=== PATIENT | female | born 1955 | race Caucasian/White ===

== ENCOUNTER 2017-02-11 05:30 | Inpatient (IN) | payer BC ==
[~2017-02-11] VITALS: Ht 175.3 cm; Wt 95.3 kg
[2017-02-11] MEDS ORDERED: PRO40 PO (06:34)
[2017-02-11] MEDS ORDERED: PROPOFOL 200MG/ 20ML VIAL (DIPRIVAN) IV ONE (07:03)
[2017-02-11] MEDS ORDERED: SUCCINYLCHOLINE CHLORIDE 20 MG/ML(QUELICIN) IVP ONE (07:03)
[2017-02-11] MEDS ORDERED: fentaNYL CITRATE/PF 100 MCG/2 ML AMP IVP ONE (07:03)
[2017-02-11] MEDS ORDERED: LR 1,000 ML IV.SOLN IV ONE (07:03)
[2017-02-11] MEDS ORDERED: LIDOCAINE/EPI 1% 1:100000 20 ML VIAL INJ ONE (07:03)
[2017-02-11] MEDS ORDERED: MIDAZOLAM HCL 5 MG/5 ML VIAL IVP ONE (07:03)
[2017-02-11] MEDS ORDERED: NS IRRIG SOLN 1000 ML IR ONE (07:03)
[2017-02-11] MEDS ORDERED: SEVOFLURANE 15 MIN GAS INH ONE (07:03)
[2017-02-11] MEDS ORDERED: DEXAMETHASONE SOD PHOSPHATE 4 MG/ML VIAL IVP ONE (07:03)
[2017-02-11] MEDS ORDERED: CEFAZOLIN 2 GM IVPB PREMIX 50 ML IV ONE (07:03)
[2017-02-11] MEDS ORDERED: LR 1,000 ML IV SCH (07:52)
[2017-02-11] MEDS ORDERED: ONDANSETRON HCL 4 MG/2 ML VIAL IVP PRN (08:00)
[2017-02-11] MEDS ORDERED: HYDROmorphone 1 MG INJ. 1 MG/ML AMPUL IVP PRN (08:00)
[2017-02-11] MEDS ORDERED: HYDROmorphone 2 MG/ML VIAL IVP PRN ×2 (08:00)
[2017-02-11] MEDS ORDERED: MEPERIDINE HCL/PF 25 MG/ML DISP.SYRIN IVP PRN ×2 (08:00)
[2017-02-11] MEDS ORDERED: HYDROmorphone 1 MG INJ. 1 MG/ML AMPUL ONE (11:02)
[2017-02-11 11:32] VITALS: BP_SYST 143
[2017-02-11 12:30] VITALS: BP_SYST 124
[2017-02-11] MEDS ORDERED: NORMAL SALINE 5 ML DISP.SYRIN IVF SCH (14:00)
[2017-02-11 14:46] VITALS: BP_SYST 143
[2017-02-11] MEDS: NORMAL SALINE 5 ML DISP.SYRIN IVF SCH ×2 (14:57→22:00)
[2017-02-11] MEDS: HYDROcodone/ACETAMIN 5-325 MG TAB (NORCO/ VICODIN) PO PRN ×3 (14:57→23:11)
[2017-02-11] MEDS: DEXAMETHASONE SOD PHOSPHATE 4 MG/ML VIAL IVP SCH ×2 (14:57→23:05)
[2017-02-11 16:49] VITALS: BP_SYST 136
[2017-02-11] MEDS: ONDANSETRON HCL 4 MG/2 ML VIAL IVP PRN (16:56)
[2017-02-11 20:00] VITALS: BP_SYST 114
[2017-02-12 01:07] VITALS: BP_SYST 115
[2017-02-12 03:15] VITALS: BP_SYST 109
[2017-02-12] MEDS: NORMAL SALINE 5 ML DISP.SYRIN IVF SCH (06:35)
[2017-02-12] MEDS ORDERED: HYDR-1189 PO ×2 (08:33→08:34)
[2017-02-12] MEDS ORDERED: SULF1TAB48 PO (08:34)
[2017-02-12] MEDS: HYDROcodone/ACETAMIN 5-325 MG TAB (NORCO/ VICODIN) PO PRN (08:38)
[2017-02-12] MEDS: ONDANSETRON HCL 4 MG/2 ML VIAL IVP PRN (08:41)
[2017-02-12 10:03] VITALS: BP_SYST 113
== END 2017-02-12 10:45 | disposition home or self-care (01) | DRG 627 ==
LOC: SMU 05:30
PROVIDERS: ADMIT Otolaryngology Plastic Surgery within the Head & Neck; ATTEND Otolaryngology Plastic Surgery within the Head & Neck
PROC: 4A11X4G Monitoring of Peripheral Nervous Electrical Activity, Intraoperative, External Approach (ICD-10-PCS; 2017-02-11)
PROC: 0GTJ0ZZ Resection of Thyroid Gland Isthmus, Open Approach (ICD-10-PCS; principal; 2017-02-11 07:30)
DX: E04.1 Nontoxic single thyroid nodule (principal)
CPT/HCPCS: 87081; 88307; 88313; 94010; C1782; J0330; J0690; J1100; J1170; J2250; J2405; J2704; J3010; J7120

== ENCOUNTER 2017-02-18 08:36 | Inpatient (IN) | payer BC ==
[~2017-02-18] VITALS: Ht 175.3 cm; Wt 95.3 kg
[~2017-02-18 08:36] MED LIST: HYDR-1189 PO; PRO40 PO; SULF1TAB48 PO
[2017-02-18] MEDS ORDERED: LR 1,000 ML IV SCH (12:02)
[2017-02-18] MEDS ORDERED: ONDANSETRON HCL 4 MG/2 ML VIAL IVP PRN ×2 (12:15→13:00)
[2017-02-18] MEDS ORDERED: HYDROmorphone 2 MG/ML VIAL IVP PRN (12:15)
[2017-02-18] MEDS ORDERED: HYDROmorphone 1 MG INJ. 1 MG/ML AMPUL IVP PRN ×2 (12:15)
[2017-02-18 14:00] VITALS: BP_SYST 140
[2017-02-18] MEDS ORDERED: NORMAL SALINE 5 ML DISP.SYRIN IVF SCH (14:00)
[2017-02-18] MEDS: HYDROcodone/ACETAMIN 5-325 MG TAB (NORCO/ VICODIN) PO PRN ×2 (14:33→21:02)
[2017-02-18] MEDS: NORMAL SALINE 5 ML DISP.SYRIN IVF SCH ×2 (14:34→22:00)
[2017-02-18] MEDS: DEXAMETHASONE SOD PHOSPHATE 4 MG/ML VIAL IVP SCH (15:15)
[2017-02-18 16:00] VITALS: BP_SYST 131
[2017-02-18 20:00] VITALS: BP_SYST 124
[2017-02-18 22:24] VITALS: BP_SYST 124
[2017-02-19] MEDS: DEXAMETHASONE SOD PHOSPHATE 4 MG/ML VIAL IVP SCH (00:51)
[2017-02-19] MEDS: HYDROcodone/ACETAMIN 5-325 MG TAB (NORCO/ VICODIN) PO PRN ×2 (01:07→06:32)
[2017-02-19 04:21] VITALS: BP_SYST 111
[2017-02-19] MEDS: NORMAL SALINE 5 ML DISP.SYRIN IVF SCH (06:34)
[2017-02-19 08:00] VITALS: BP_SYST 114
[2017-02-19] MEDS ORDERED: METOCLOPRAMIDE HCL 10 MG/2 ML VIAL IVP ONE (11:10)
[2017-02-19] MEDS ORDERED: BACITRACIN ZINC 15 GM TOPICAL OINTMENT TP ONE (11:10)
[2017-02-19] MEDS ORDERED: PROPOFOL 200MG/ 20ML VIAL (DIPRIVAN) IV ONE (11:10)
[2017-02-19] MEDS ORDERED: fentaNYL CITRATE 250 MCG/5 ML AMP IV ONE (11:10)
[2017-02-19] MEDS ORDERED: SEVOFLURANE 15 MIN GAS INH ONE (11:10)
[2017-02-19] MEDS ORDERED: THROMBIN (BOVINE) 5000 UNITS/ VIAL TP ONE (11:10)
[2017-02-19] MEDS ORDERED: NS IRRIG SOLN 1000 ML IR ONE (11:10)
[2017-02-19] MEDS ORDERED: LIDOCAINE/EPI 1% 1:100000 20 ML VIAL INJ ONE (11:10)
[2017-02-19] MEDS ORDERED: ONDANSETRON HCL 4 MG/2 ML VIAL IVP ONE (11:10)
[2017-02-19] MEDS ORDERED: SUCCINYLCHOLINE CHLORIDE 20 MG/ML(QUELICIN) IVP ONE (11:10)
[2017-02-19] MEDS ORDERED: CEFAZOLIN 1 GM IVPB PREMIX 50 ML IV ONE (11:10)
[2017-02-19] MEDS ORDERED: MIDAZOLAM HCL 5 MG/5 ML VIAL IVP ONE (11:10)
[2017-02-19] MEDS ORDERED: LR 1,000 ML IV.SOLN IV ONE (11:10)
[2017-02-19 11:34] VITALS: BP_SYST 126
[2017-02-19 13:18] VITALS: BP_SYST 117
== END 2017-02-19 14:05 | disposition home or self-care (01) | DRG 627 ==
LOC: SMU 08:36
PROVIDERS: ADMIT Otolaryngology Plastic Surgery within the Head & Neck; ATTEND Otolaryngology Plastic Surgery within the Head & Neck
PROC: 0GTG4ZZ Resection of Left Thyroid Gland Lobe, Percutaneous Endoscopic Approach (ICD-10-PCS; principal; 2017-02-18 10:15)
DX: C73 Malignant neoplasm of thyroid gland (principal); K21.9 Gastro-esophageal reflux disease without esophagitis
CPT/HCPCS: 36415; 82310-TC; 87081; 88307; 94010; C1782; J0330; J0690; J1100; J2250; J2405; J2704; J2765; J3010; J7120

== ENCOUNTER 2020-03-07 17:57 | Inpatient (IN) | payer BC ==
[~2020-03-07] VITALS: Ht 170.2 cm; Wt 97.5 kg
[2020-03-07 17:57] VITALS: BP_SYST 139
--- NOTE | 2020-03-07 17:57 | NUR ---
BROUGHT BACK TO BED #1 AND TRIAGED. REPORT GIVEN TO MACY
--- NOTE | 2020-03-07 18:04 | NUR ---
64 y/o female [facility] ambulance to ER from her local clinic w/ c/o increased hr w/ abnormal rhythm. Patient was referred to clinic by her PMD (h/o Thyroid Cancer, currently on Synthroid) when her pmd noticed patient had an abnormal rhythm. Patient denies any cp or palpitation but c/o sob. Introduced self to patient, positioned for comfort and safety w/ bed to low position, sr up, continue to monitor.
--- NOTE | 2020-03-07 18:15 | NUR ---
JOEL Peña at bedside examining patient.
[2020-03-07] MEDS ORDERED: NACL 0.9% 1,000 ML IV ONE (18:30)
[2020-03-07 18:39] LABS: BASOPHILS # (AUTO) 0.1 K/uL (0.0-0.2); EOSINOPHILS # (AUTO) 0.1 K/uL (0.0-0.4); EOSINOPHILS % (AUTO) 1.2 % (0.0-4.0); HEMATOCRIT 43.2 % (36-48); HEMOGLOBIN 14.6 g/dL (12.0-16.0); LYMPHOCYTES # (AUTO) 2.3 K/uL (1.0-5.5); LYMPHOCYTES % (AUTO) 28.6 % (20.5-51.5); MEAN CORPUSCULAR HEMOGLOBIN 30 pg (27-31); MEAN CORPUSCULAR HGB CONC 34 % (32-36); MEAN CORPUSCULAR VOLUME 89 fL (79.0-98.0); MONOCYTES # (AUTO) 0.6 K/uL (0.0-1.0); NEUTROPHILS % (AUTO) 62.2 % (40.0-70.0); PLATELET COUNT (AUTO) 326 K/uL (130-430); RED BLOOD CELL COUNT(AUTO) 4.86 MIL/uL (4.2-6.2); RED CELL DISTRIBUTION WIDTH 13.1 % (9.0-15.0); WHITE BLOOD COUNT (AUTO) 8.1 K/uL (4.8-10.8)
[2020-03-07 18:57] LABS: ANION GAP 9 (5-15); CALCIUM 8.8 mg/dL (8.4-11.0); CHLORIDE 106 mmol/L (98-107); CREATININE 0.84 mg/dL (0.55-1.30); GLUCOSE 97 mg/dL (70-99); POTASSIUM 3.7 mmol/L (3.5-5.1); SODIUM SERUM 139 mmol/L (136-145); UREA NITROGEN, BLOOD 12 mg/dL (8-21)
[2020-03-07 19:03] LABS: GFR AFRICAN AMERICAN 88 mL/min (>90)
--- NOTE | 2020-03-07 19:07 | NUR ---
received report from SHANEKA Taylor for continuation of care.
[2020-03-07 19:12] LABS: ALANINE AMINOTRANSFERASE 21 U/L (12-78); ALBUMIN 3.8 g/dL (3.4-4.8); ASPARTATE AMINOTRANSFERASE 17 U/L (10-37); FREE T4 (FREE THYROXINE) 1.8 ng/dl (0.8-1.5); PHOSPHORUS 2.8 mg/dL (2.7-4.5); THYROID STIMULATING HORMONE 0.04 uIu/mL (0.36-3.74); TOTAL BILIRUBIN 0.5 mg/dL (0.0-1.0)
[2020-03-07] MEDS ORDERED: DILTIAZEM HCL 25 MG/5 ML VIAL IVP ONE (19:15)
--- NOTE | 2020-03-07 19:22 | NUR ---
Dr. Kennedy at bedside speaking with patient.
--- NOTE | 2020-03-07 19:25 | NUR ---
IV 20g in right hand flushed with normal saline without signs of infiltration.
--- NOTE | 2020-03-07 19:27 | NUR ---
IV fluids reconnected to patient, infusing at prescribed rate of 999mls/hr.
--- NOTE | 2020-03-07 19:37 | NUR ---
patients HR continues to jump to 130s after IV push of 15mg of Cardizem. MD aware. MD to input orders.
[2020-03-07] MEDS ORDERED: DILTIAZEM HCL 125 MG/25 ML VIAL IV ONE (19:55)
--- NOTE | 2020-03-07 20:10 | NUR ---
cardizem IV drip initiated at 10mg/hr per protocol. per MD order, maintain patients HR under 100-110. will titrate by 5mg/hr every 15 minutes per protocol. will continue to monitor. pt placed on security monitor for continuous monitoring.
[2020-03-07] MEDS ORDERED: LEVO100T PO (20:12)
--- NOTE | 2020-03-07 20:12 | NUR ---
Patient's code status is full code paperwork completed and placed in chart.
--- NOTE | 2020-03-07 20:12 | NUR ---
Medication reconciliation completed with information provided by patient. Any prior medication reconciliation on file was reviewed and corrected.
--- NOTE | 2020-03-07 20:20 | NUR ---
COVID SWAB COLLECTED AND SENT TO LAB.
--- NOTE | 2020-03-07 20:25 | NUR ---
patient ambulated to restroom with steady gait.
--- NOTE | 2020-03-07 20:27 | NUR ---
cardizem IV drip titrated to 15mg/hr per protocol. per MD order, maintain patients HR under 100-110. will titrate by 5mg/hr every 15 minutes per protocol. will continue to monitor. pt placed on lacing operator for continuous monitoring.
--- NOTE | 2020-03-07 20:32 | NUR ---
Patient will be admitted to care of DR. YA. Admitted to ICU unit. Will go to room ICU 6. Belongings list completed. Complete and up to date summary report printed. SBAR report to be given at bedside with opportunity for questions.
--- NOTE | 2020-03-07 20:53 | NUR ---
Transfer to ICU-6 via ACLS protocol. Licensed nurse present. IV present no signs or symptoms of infiltration.
[2020-03-07 21:00] VITALS: BP_SYST 145
[2020-03-07 21:05] VITALS: BP_SYST 141
--- NOTE | 2020-03-07 21:10 | NUR ---
ICU ADMIT Pt is alert and oriented. SPO2% above 95%. RR even and unlabored. Afib on the monitor. Skin warm and dry. IVF infusing. Belongings at bedside. Safety precautions in place, call light within reach. Will continue to monitor.
[2020-03-07 22:00] VITALS: BP_SYST 111
--- NOTE | 2020-03-07 22:40 | NUR ---
Spoke to Dr. Bird for new consult. made aware of patients current status. Orders given, will carry out.
--- NOTE | 2020-03-07 22:43 | NUR ---
HIGH ALERT NOTE: Called Dr. Bird back at [phone] identified within the medical roster to verify physician authenticity.
[2020-03-07] MEDS ORDERED: AMIODARONE HCL 200 MG TABLET PO ONE (22:45)
[2020-03-07 23:00] VITALS: BP_SYST 122
[2020-03-08] VITALS (20 sets, daily range): BP systolic 90–122
[2020-03-08] MEDS ORDERED: ACETAMINOPHEN 325 MG TABLET PO PRN (00:45)
[2020-03-08] MEDS ORDERED: HYDROcodone/ACETAMIN 5-325 MG TAB (NORCO/ VICODIN) PO PRN (00:45)
[2020-03-08] MEDS ORDERED: LORazepam 2 MG/ML VIAL IVP PRN (00:45)
[2020-03-08] MEDS ORDERED: NALOXONE HCL 0.4 MG/ML AMP (NARCAN) IVP PRN ×2 (00:45)
[2020-03-08] MEDS ORDERED: HYDROcodone/ACETAMIN 10-325 MG TAB PO PRN (00:45)
[2020-03-08] MEDS ORDERED: ONDANSETRON HCL 4 MG/2 ML VIAL IVP PRN (00:45)
[2020-03-08] MEDS ORDERED: DILTIAZEM HCL 125 MG/25 ML VIAL IV ONE (01:28)
[2020-03-08] MEDS ORDERED: AMIODARONE HCL 200 MG TABLET PO SCH (06:00)
[2020-03-08 06:04] LABS: BASOPHILS # (AUTO) 0.1 K/uL (0.0-0.2); EOSINOPHILS # (AUTO) 0.1 K/uL (0.0-0.4); EOSINOPHILS % (AUTO) 1.9 % (0.0-4.0); HEMATOCRIT 39.5 % (36-48); HEMOGLOBIN 13.3 g/dL (12.0-16.0); LYMPHOCYTES % (AUTO) 27.9 % (20.5-51.5); MEAN CORPUSCULAR HEMOGLOBIN 30 pg (27-31); MEAN CORPUSCULAR HGB CONC 34 % (32-36); MEAN CORPUSCULAR VOLUME 89 fL (79.0-98.0); MONOCYTES # (AUTO) 0.6 K/uL (0.0-1.0); MONOCYTES % (AUTO) 8.3 % (1.7-9.3); NEUTROPHILS # (AUTO) 4.4 K/uL (1.8-7.7); NEUTROPHILS % (AUTO) 60.9 % (40.0-70.0); PLATELET COUNT (AUTO) 296 K/uL (130-430); RED BLOOD CELL COUNT(AUTO) 4.45 MIL/uL (4.2-6.2); RED CELL DISTRIBUTION WIDTH 12.9 % (9.0-15.0); WHITE BLOOD COUNT (AUTO) 7.3 K/uL (4.8-10.8)
[2020-03-08] MEDS: NORMAL SALINE 5 ML DISP.SYRIN IVF SCH ×3 (06:05→21:29)
[2020-03-08 06:25] LABS: ALBUMIN 3.2 g/dL (3.4-4.8); CALCIUM 7.9 mg/dL (8.4-11.0); CREATININE 0.83 mg/dL (0.55-1.30); PHOSPHORUS 3.1 mg/dL (2.7-4.5); POTASSIUM 3.9 mmol/L (3.5-5.1); THYROID STIMULATING HORMONE 0.05 uIu/mL (0.36-3.74); TOTAL BILIRUBIN 0.6 mg/dL (0.0-1.0)
[2020-03-08] MEDS ORDERED: LEVOTHYROXINE SODIUM 0.1 MG TABLET PO SCH (07:00)
--- NOTE | 2020-03-08 08:00 | NUR ---
AM ASSESSMENT. PT JUST COMING BACK TO HER BED, CARDIZEM DRIP AT 5 MG PER HR INFUSING, BENEFITS PROCESSOR ATRIAL FIB. NO COMPLAINTS OF SHORTNESS OF BREATH NOR CHEST DISCOMFORT. DR WILSON CAME IN AND EXAMINED PT.
--- NOTE | 2020-03-08 08:40 | NUR ---
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 PT SEEN BY DR HERNANDEZ. ORDERED TO DISCONTINUE CARDIZEM DRIP, ORDERS CARRIED OUT.
[2020-03-08] MEDS ORDERED: PROPRANOLOL HCL 10 MG TABLET (INDERAL) PO ONE (08:45)
[2020-03-08] MEDS: APIXABAN 2.5 MG TABLET PO SCH ×2 (10:24→21:25)
--- NOTE | 2020-03-08 10:29 | NUR ---
HYGIENE. PROVIDED PT TOILETRIES, CLEAN AND WET TOWELS FOR PERSONAL HYGIENE.
[2020-03-08] MEDS: AMIODARONE HCL 200 MG TABLET PO SCH ×2 (15:31→21:27)
[2020-03-08] MEDS: PROPRANOLOL HCL 10 MG TABLET (INDERAL) PO SCH ×2 (15:32→21:28)
--- NOTE | 2020-03-08 17:00 | NUR ---
REST. PT SITTING UP IN HER BED, CHECKING HER PHONE PROBABLY FOR MESSAGES AND PICTURES. NEEDS ASSESSED AND ATTENDED.
--- NOTE | 2020-03-08 19:30 | NUR ---
OPENING NOTE: Received SBAR report from off coming RN for continuity of care.
--- NOTE | 2020-03-08 21:00 | NUR ---
Pt laying in bed, alert and oriented x 4. Pt denies any pain or discomfort. Pt cooperative and able to follow commands. Pt on RA with oxygen saturations above 90% and no s/s of respiratory distress. Pt up to use the toilet, steady gait observed. Will continue to monitor and assess.
[2020-03-09] VITALS: BP_SYST 104
--- NOTE | 2020-03-09 00:30 | NUR ---
Pt laying in bed asleep, no s/s of distress noted. Continuous telemetry monitoring in place. Pt remains on RA with oxygen saturations above 95%. Bed locked and in lowest position, safety precautions in place. Will continue to monitor and assess.
[2020-03-09 04:00] VITALS: BP_SYST 121
[2020-03-09] MEDS: PROPRANOLOL HCL 10 MG TABLET (INDERAL) PO SCH (06:18)
[2020-03-09] MEDS: NORMAL SALINE 5 ML DISP.SYRIN IVF SCH (06:19)
[2020-03-09] MEDS: AMIODARONE HCL 200 MG TABLET PO SCH (06:19)
--- NOTE | 2020-03-09 07:28 | NUR ---
CLOSING NOTE: Endorsed SBAR report to oncoming RN for continuity of care.
--- NOTE | 2020-03-09 07:35 | NUR ---
Opening Note Received bedside report from endorsing RN for continuation of care. Received patient awake and resting in bed, patient denies any pain or SOB at this time. No signs or symptoms of acute distress noted. Bed locked in lowest position, bed alarm on, and call light within reach. Fall and safety precautions in place.
[2020-03-09 08:00] VITALS: BP_SYST 101
[2020-03-09] MEDS: APIXABAN 2.5 MG TABLET PO SCH (08:33)
--- NOTE | 2020-03-09 08:53 | NUR ---
Dr. Asher at bedside examining patient. No new orders.
--- NOTE | 2020-03-09 10:14 | NUR ---
Dr. Santos at bedside with patient. New orders received for discharge from ICU.
[2020-03-09 10:42] VITALS: BP_SYST 107
--- NOTE | 2020-03-09 11:15 | NUR ---
D/C Patient Patient given medication reconciliation form and D/C instructions. Exit Care provided. Patient verbalized understanding. MD discussed with patient the results and treatment provided. Ambulatory with steady gait for discharge to home. Patient in stable condition, ID band removed. IV catheter removed, intact and dressing applied, no active bleeding. Rx of Inderal and Aspirin given. Patient educated on pain management. All belongings sent with patient.
[2020-03-10] MEDS ORDERED: PROPRANOLOL HCL (INDERAL LA 60MG) PO SCH (09:00)
[2020-03-10] MEDS ORDERED: ASPIRIN 81 MG TAB.CHEW PO SCH (09:00)
== END 2020-03-09 11:10 | disposition home or self-care (01) | DRG 310 ==
LOC: SED 17:57 → SIC 20:26
PROVIDERS: ADMIT Internal Medicine Hospice and Palliative Medicine; ATTEND Internal Medicine Hospice and Palliative Medicine
DX: I48.91 Unspecified atrial fibrillation (principal); E05.90 Thyrotoxicosis, unspecified without thyrotoxic crisis or storm; E89.0 Postprocedural hypothyroidism; R00.0 Tachycardia, unspecified; Z20.828 Contact with and (suspected) exposure to other viral communicable diseases; I10 Essential (primary) hypertension; Z79.82 Long term (current) use of aspirin; Z82.5 Family history of asthma and other chronic lower respiratory diseases; Z85.850 Personal history of malignant neoplasm of thyroid; Z79.899 Other long term (current) drug therapy
CPT/HCPCS: 36415; 71045; 80053; 83735-TC; 84100-TC; 84439; 84443-TC; 84484; 85025; 85379; 87081; 93005; 93306; 96365; 96366; 96375; 99291; J3490

== ENCOUNTER 2023-04-26 09:25 | Inpatient (IN) | payer BC ==
[~2023-04-26] VITALS: Ht 175.3 cm; Wt 106.6 kg
[~2023-04-26 09:25] MED LIST changes: -HYDR-1189 PO; +LEVO100T PO; -PRO40 PO; -SULF1TAB48 PO
[2023-04-26 09:27] VITALS: BP_SYST 138; PULSE 133; RESP 18; TEMP 98.3; O2SAT 98
[2023-04-26] MEDS ORDERED: prednisoLONE 15 MG/5 ML UDC PO ONE (09:45)
[2023-04-26] MEDS ORDERED: IPRATROPIUM/ALBUTEROL SULFATE 3 ML AMPUL.NEB (DUONEB) INH ONE (09:45)
[2023-04-26 10:00] LABS: BASOPHILS # (AUTO) 0.1 K/uL (0.0-0.2); BASOPHILS % (AUTO) 1.1 % (0.0-2.0); EOSINOPHILS % (AUTO) 0.3 % (0.0-4.0); HEMATOCRIT 41.7 % (36-48); HEMOGLOBIN 14.1 g/dL (12.0-16.0); LYMPHOCYTES # (AUTO) 1.5 K/uL (1.0-5.5); LYMPHOCYTES % (AUTO) 17.9 % (20.5-51.5); MEAN CORPUSCULAR HEMOGLOBIN 30 pg (27-31); MEAN CORPUSCULAR HGB CONC 34 % (32-36); MEAN CORPUSCULAR VOLUME 89 fL (79.0-98.0); MONOCYTES # (AUTO) 0.5 K/uL (0.0-1.0); MONOCYTES % (AUTO) 6.5 % (1.7-9.3); NEUTROPHILS # (AUTO) 6.1 K/uL (1.8-7.7); NEUTROPHILS % (AUTO) 74.2 % (40.0-70.0); PLATELET COUNT (AUTO) 386 K/uL (130-430); RED BLOOD CELL COUNT(AUTO) 4.69 MIL/uL (4.2-6.2); RED CELL DISTRIBUTION WIDTH 13.7 % (9.0-15.0); WHITE BLOOD COUNT (AUTO) 8.2 K/uL (4.8-10.8)
[2023-04-26] MEDS ORDERED: dilTIAZem HCL IVP 5 MG/ML VIAL IVP ONE ×3 (10:00→16:45)
[2023-04-26] MEDS ORDERED: levalbuterol HCL 0.63 MG/3 ML VIAL.NEB INH ONE (10:00)
[2023-04-26] MEDS ORDERED: predniSONE 20 MG TABLET PO ONE (10:00)
[2023-04-26 10:12] LABS: ANION GAP 11 (5-15); CALCIUM 8.9 mg/dL (8.4-11.0); CARBON DIOXIDE 24 mmol/L (23-29); CHLORIDE 107 mmol/L (98-107); CREATININE 1.13 mg/dL (0.55-1.30); GFR AFRICAN AMERICAN 62 mL/min (>90); GFR NON AFRICAN-AMERICAN 51 mL/min (>90); GLUCOSE 134 mg/dL (74-106); POTASSIUM 3.8 mmol/L (3.5-5.1); SODIUM SERUM 142 mmol/L (136-145); UREA NITROGEN, BLOOD 14 mg/dL (8-21)
[2023-04-26] MEDS ORDERED: NACL 0.9% 1,000 ML IV ONE (11:00)
[2023-04-26] MEDS ORDERED: DIGOXIN 0.5 MG/2 ML AMP IVP ONE (12:45)
[2023-04-26] MEDS ORDERED: METO-540 PO (12:54)
[2023-04-26] MEDS ORDERED: LEVO112T5 PO (12:54)
[2023-04-26] MEDS ORDERED: LEVO750T64 PO (12:54)
[2023-04-26] MEDS ORDERED: PANT40TA45 PO (12:54)
[2023-04-26] MEDS ORDERED: ATOR10TA68 PO (12:54)
[2023-04-26] MEDS ORDERED: LEVO112T2 PO (13:02)
[2023-04-26] MEDS ORDERED: METOPROLOL TARTRATE 25 MG TABLET PO ONE (14:00)
[2023-04-26] MEDS ORDERED: METOPROLOL TARTRATE 25 MG TABLET ONE (14:21)
[2023-04-26 16:42] VITALS: BP_SYST 133; PULSE 121; RESP 18; TEMP 97.8; O2SAT 94
[2023-04-26] MEDS ORDERED: ENOXAPARIN SODIUM 100 MG/ML SYRINGE SUBCUT ONE (17:15)
[2023-04-26 17:34] LABS: INR 1.2 (0.8-1.2); PROTHROMBIN TIME 12.6 SECS (9.5-12.5)
[2023-04-26 20:05] VITALS: BP_SYST 122; PULSE 87; RESP 18; TEMP 97.2; O2SAT 94; O2SAT 95
[2023-04-26] MEDS ORDERED: METOPROLOL TARTRATE 50 MG TABLET PO SCH (21:00)
[2023-04-26] MEDS: METOPROLOL TARTRATE 50 MG TABLET PO SCH (21:10)
[2023-04-26] MEDS: ACETAMINOPHEN 325 MG TABLET PO PRN (22:51)
[2023-04-27] VITALS: BP_SYST 115; PULSE 68; RESP 16; TEMP 97.2; O2SAT 93
[2023-04-27 04:53] LABS: BASOPHILS % (AUTO) 0.3 % (0.0-2.0); HEMATOCRIT 37.6 % (36-48); HEMOGLOBIN 12.7 g/dL (12.0-16.0); LYMPHOCYTES # (AUTO) 1.1 K/uL (1.0-5.5); LYMPHOCYTES % (AUTO) 11.6 % (20.5-51.5); MEAN CORPUSCULAR HEMOGLOBIN 30 pg (27-31); MEAN CORPUSCULAR HGB CONC 34 % (32-36); MEAN CORPUSCULAR VOLUME 89 fL (79.0-98.0); MONOCYTES # (AUTO) 0.5 K/uL (0.0-1.0); MONOCYTES % (AUTO) 5.2 % (1.7-9.3); NEUTROPHILS # (AUTO) 8.2 K/uL (1.8-7.7); NEUTROPHILS % (AUTO) 82.9 % (40.0-70.0); PLATELET COUNT (AUTO) 304 K/uL (130-430); RED BLOOD CELL COUNT(AUTO) 4.24 MIL/uL (4.2-6.2); RED CELL DISTRIBUTION WIDTH 13.7 % (9.0-15.0); WHITE BLOOD COUNT (AUTO) 9.9 K/uL (4.8-10.8)
[2023-04-27 05:29] LABS: CALCIUM 8.4 mg/dL (8.4-11.0); CREATININE 0.92 mg/dL (0.55-1.30); FREE T4 (FREE THYROXINE) 1.2 ng/dL (0.6-1.6); POTASSIUM 3.9 mmol/L (3.5-5.1); THYROID STIMULATING HORMONE 1.19 uIu/mL (0.34-4.82); TOTAL BILIRUBIN 0.8 mg/dL (0.0-1.0); TOTAL PROTEIN, SERUM 5.9 g/dL (6.4-8.3)
[2023-04-27] MEDS: LEVOTHYROXINE SODIUM 0.112 MG TABLET PO SCH (06:18)
[2023-04-27] MEDS: METOPROLOL TARTRATE 50 MG TABLET PO SCH ×3 (06:18→21:33)
[2023-04-27 08:00] VITALS: BP_SYST 118; BP_SYST 121; PULSE 101; PULSE 65; PULSE 70; RESP 18; TEMP 97.3; TEMP 97.8; O2SAT 90; O2SAT 96; O2SAT 99
[2023-04-27] MEDS: PANTOPRAZOLE SODIUM 40 MG TAB PO SCH (08:47)
[2023-04-27] MEDS: ATORVASTATIN 10 MG TABLET PO SCH (08:47)
[2023-04-27] MEDS ORDERED: APIXABAN 2.5 MG TABLET PO SCH (09:00)
[2023-04-27] MEDS ORDERED: ENOXAPARIN SODIUM 100 MG/ML SYRINGE SUBCUT SCH (09:00)
[2023-04-27 12:00] VITALS: BP_SYST 105; PULSE 99; RESP 18; TEMP 97.7; O2SAT 97
[2023-04-27 16:00] VITALS: BP_SYST 119; PULSE 102; RESP 20; O2SAT 96
[2023-04-27] MEDS ORDERED: DIGOXIN 0.5 MG/2 ML AMP IVP ONE (18:30)
[2023-04-27 19:45] VITALS: BP_SYST 122; PULSE 104; RESP 18; TEMP 96.4; O2SAT 95
[2023-04-27] MEDS: APIXABAN 2.5 MG TABLET PO SCH (21:34)
[2023-04-27] MEDS ORDERED: dilTIAZem HCL IVP 5 MG/ML VIAL IVP ONE (22:45)
[2023-04-28] VITALS (7 sets, daily range): BP systolic 116–145; PULSE 60–93; RESP 16–20; TEMP 96.5–98.8; O2SAT 92–98
[2023-04-28] MEDS: LEVOTHYROXINE SODIUM 0.112 MG TABLET PO SCH (06:41)
[2023-04-28] MEDS: METOPROLOL TARTRATE 50 MG TABLET PO SCH ×2 (06:45→21:16)
[2023-04-28] MEDS ORDERED: METOPROLOL TARTRATE 50 MG TABLET PO SCH (09:00)
[2023-04-28] MEDS ORDERED: DIGOXIN 0.5 MG/2 ML AMP IVP SCH (09:00)
[2023-04-28] MEDS ORDERED: DIGOXIN 0.25 MG TABLET PO SCH (09:00)
[2023-04-28] MEDS ORDERED: FUROSEMIDE 20 MG/2 ML VIAL IVP SCH (09:00)
[2023-04-28] MEDS: PANTOPRAZOLE SODIUM 40 MG TAB PO SCH (09:11)
[2023-04-28] MEDS: APIXABAN 2.5 MG TABLET PO SCH ×2 (09:12→21:15)
[2023-04-28] MEDS: DIGOXIN 0.5 MG/2 ML AMP IVP SCH (09:16)
[2023-04-28] MEDS: ATORVASTATIN 10 MG TABLET PO SCH (09:17)
[2023-04-28] MEDS ORDERED: METOPROLOL TARTRATE 50 MG TABLET PO ONE (09:45)
[2023-04-29] VITALS (7 sets, daily range): BP systolic 124–131; PULSE 65–102; RESP 16–18; TEMP 96.8–98.4; O2SAT 95–97
[2023-04-29] MEDS: LEVOTHYROXINE SODIUM 0.112 MG TABLET PO SCH (06:12)
[2023-04-29] MEDS: FUROSEMIDE 20 MG TABLET PO SCH ×2 (06:22→17:33)
[2023-04-29 07:08] LABS: BASOPHILS # (AUTO) 0.1 K/uL (0.0-0.2); BASOPHILS % (AUTO) 0.7 % (0.0-2.0); EOSINOPHILS # (AUTO) 0.2 K/uL (0.0-0.4); EOSINOPHILS % (AUTO) 2.4 % (0.0-4.0); HEMATOCRIT 41.1 % (36-48); HEMOGLOBIN 13.8 g/dL (12.0-16.0); LYMPHOCYTES # (AUTO) 1.7 K/uL (1.0-5.5); LYMPHOCYTES % (AUTO) 22.5 % (20.5-51.5); MEAN CORPUSCULAR HEMOGLOBIN 30 pg (27-31); MEAN CORPUSCULAR HGB CONC 34 % (32-36); MEAN CORPUSCULAR VOLUME 89 fL (79.0-98.0); MONOCYTES # (AUTO) 0.7 K/uL (0.0-1.0); MONOCYTES % (AUTO) 8.8 % (1.7-9.3); NEUTROPHILS % (AUTO) 65.6 % (40.0-70.0); PLATELET COUNT (AUTO) 357 K/uL (130-430); RED BLOOD CELL COUNT(AUTO) 4.63 MIL/uL (4.2-6.2); RED CELL DISTRIBUTION WIDTH 14.3 % (9.0-15.0); WHITE BLOOD COUNT (AUTO) 7.5 K/uL (4.8-10.8)
[2023-04-29 07:17] LABS: ALBUMIN 3.1 g/dL (3.4-4.8); CALCIUM 8.4 mg/dL (8.4-11.0); POTASSIUM 3.8 mmol/L (3.5-5.1); TOTAL BILIRUBIN 1.2 mg/dL (0.0-1.0)
[2023-04-29] MEDS: METOPROLOL TARTRATE 50 MG TABLET PO SCH ×2 (08:35→21:12)
[2023-04-29] MEDS: PANTOPRAZOLE SODIUM 40 MG TAB PO SCH (08:35)
[2023-04-29] MEDS: ATORVASTATIN 10 MG TABLET PO SCH (08:36)
[2023-04-29] MEDS: DIGOXIN 0.5 MG/2 ML AMP IVP SCH (08:36)
[2023-04-29] MEDS: APIXABAN 2.5 MG TABLET PO SCH ×2 (08:37→21:11)
[2023-04-29] MEDS: ACETAMINOPHEN 325 MG TABLET PO PRN (13:29)
[2023-04-30 01:23] VITALS: BP_SYST 128; PULSE 77; RESP 18; TEMP 98.6
[2023-04-30 04:55] LABS: CALCIUM 9.6 mg/dL (8.4-11.0); CREATININE 0.85 mg/dL (0.55-1.30); POTASSIUM 4.7 mmol/L (3.5-5.1)
[2023-04-30 05:00] LABS: BASOPHILS # (AUTO) 0.1 K/uL (0.0-0.2); BASOPHILS % (AUTO) 1.1 % (0.0-2.0); EOSINOPHILS # (AUTO) 0.3 K/uL (0.0-0.4); EOSINOPHILS % (AUTO) 2.5 % (0.0-4.0); HEMATOCRIT 49.2 % (36-48); HEMOGLOBIN 16.8 g/dL (12.0-16.0); LYMPHOCYTES # (AUTO) 2.3 K/uL (1.0-5.5); LYMPHOCYTES % (AUTO) 21.5 % (20.5-51.5); MEAN CORPUSCULAR HEMOGLOBIN 31 pg (27-31); MEAN CORPUSCULAR HGB CONC 34 % (32-36); MEAN CORPUSCULAR VOLUME 90 fL (79.0-98.0); MONOCYTES # (AUTO) 0.7 K/uL (0.0-1.0); NEUTROPHILS # (AUTO) 7.1 K/uL (1.8-7.7); NEUTROPHILS % (AUTO) 67.9 % (40.0-70.0); PLATELET COUNT (AUTO) 333 K/uL (130-430); RED BLOOD CELL COUNT(AUTO) 5.49 MIL/uL (4.2-6.2); RED CELL DISTRIBUTION WIDTH 14.4 % (9.0-15.0); WHITE BLOOD COUNT (AUTO) 10.5 K/uL (4.8-10.8)
[2023-04-30] MEDS: LEVOTHYROXINE SODIUM 0.112 MG TABLET PO SCH (06:07)
[2023-04-30] MEDS: FUROSEMIDE 20 MG TABLET PO SCH ×2 (06:07→17:49)
[2023-04-30 07:51] VITALS: BP_SYST 116; PULSE 74; RESP 18; TEMP 97.4; O2SAT 94
[2023-04-30 08:00] VITALS: O2SAT 94
[2023-04-30] MEDS: PANTOPRAZOLE SODIUM 40 MG TAB PO SCH (08:30)
[2023-04-30] MEDS: METOPROLOL TARTRATE 50 MG TABLET PO SCH ×2 (08:31→20:22)
[2023-04-30] MEDS: ATORVASTATIN 10 MG TABLET PO SCH (08:31)
[2023-04-30] MEDS: APIXABAN 2.5 MG TABLET PO SCH ×2 (08:32→20:22)
[2023-04-30] MEDS ORDERED: DIGOXIN 0.25 MG TABLET PO ONE (09:00)
[2023-04-30 11:04] VITALS: BP_SYST 118; PULSE 64; RESP 16; TEMP 97.6; O2SAT 95
[2023-04-30 15:14] VITALS: BP_SYST 118; PULSE 82; RESP 16; TEMP 97.8; O2SAT 94
[2023-04-30 20:00] VITALS: BP_SYST 105; PULSE 87; RESP 18; TEMP 97; O2SAT 93
[2023-05-01] VITALS: BP_SYST 112; PULSE 74; RESP 18; TEMP 97.2; O2SAT 94
[2023-05-01 06:17] LABS: BASOPHILS % (AUTO) 0.4 % (0.0-2.0); EOSINOPHILS # (AUTO) 0.2 K/uL (0.0-0.4); EOSINOPHILS % (AUTO) 2.3 % (0.0-4.0); HEMATOCRIT 45.3 % (36-48); HEMOGLOBIN 15.6 g/dL (12.0-16.0); LYMPHOCYTES # (AUTO) 1.9 K/uL (1.0-5.5); LYMPHOCYTES % (AUTO) 25.4 % (20.5-51.5); MEAN CORPUSCULAR HEMOGLOBIN 30 pg (27-31); MEAN CORPUSCULAR HGB CONC 35 % (32-36); MEAN CORPUSCULAR VOLUME 88 fL (79.0-98.0); MONOCYTES # (AUTO) 0.7 K/uL (0.0-1.0); MONOCYTES % (AUTO) 8.9 % (1.7-9.3); NEUTROPHILS # (AUTO) 4.7 K/uL (1.8-7.7); PLATELET COUNT (AUTO) 362 K/uL (130-430); RED BLOOD CELL COUNT(AUTO) 5.15 MIL/uL (4.2-6.2); WHITE BLOOD COUNT (AUTO) 7.5 K/uL (4.8-10.8)
[2023-05-01] MEDS: LEVOTHYROXINE SODIUM 0.112 MG TABLET PO SCH (06:26)
[2023-05-01] MEDS: FUROSEMIDE 20 MG TABLET PO SCH (06:26)
[2023-05-01 07:03] LABS: CALCIUM 8.7 mg/dL (8.4-11.0); CREATININE 0.98 mg/dL (0.55-1.30); POTASSIUM 3.4 mmol/L (3.5-5.1)
[2023-05-01 07:54] VITALS: BP_SYST 105; PULSE 76; RESP 18; TEMP 97; O2SAT 94
[2023-05-01 08:00] VITALS: O2SAT 94
[2023-05-01] MEDS: METOPROLOL TARTRATE 50 MG TABLET PO SCH (08:22)
[2023-05-01] MEDS: PANTOPRAZOLE SODIUM 40 MG TAB PO SCH (08:22)
[2023-05-01] MEDS: ATORVASTATIN 10 MG TABLET PO SCH (08:22)
[2023-05-01] MEDS: APIXABAN 2.5 MG TABLET PO SCH (08:23)
[2023-05-01] MEDS ORDERED: DIGOXIN 0.25 MG TABLET PO SCH (09:00)
[2023-05-01] MEDS ORDERED: POTASSIUM CHLORIDE 20 MEQ TABLET.ER PO ONE (11:45)
[2023-05-01] MEDS ORDERED: FURO-149 PO (11:49)
[2023-05-01] MEDS ORDERED: METO-442 PO (11:49)
[2023-05-01] MEDS ORDERED: Potassium Chloride PO (11:49)
[2023-05-01] MEDS ORDERED: APIX5TAB PO (11:49)
[2023-05-01] MEDS ORDERED: DIGO250T PO (11:49)
[2023-05-01 12:00] VITALS: BP_SYST 107; PULSE 84; RESP 18; TEMP 98.1; O2SAT 94
[2023-05-01] MEDS ORDERED: LEVO-62 PO (14:09)
[2023-05-01 14:13] VITALS: BP_SYST 109; PULSE 82; RESP 18; TEMP 98.2; O2SAT 94
[2023-05-02] MEDS ORDERED: FUROSEMIDE 40 MG TABLET PO SCH (09:00)
[2023-05-02] MEDS ORDERED: POTASSIUM CHLORIDE 20 MEQ TABLET.ER PO SCH (09:00)
== END 2023-05-01 14:55 | disposition home health service (06) | DRG 193 ==
LOC: SED 09:25 → STU 12:41
PROVIDERS: ADMIT Internal Medicine; ATTEND Internal Medicine
DX: J18.9 Pneumonia, unspecified organism (principal); I50.41 Acute combined systolic (congestive) and diastolic (congestive) heart failure; I48.20 Chronic atrial fibrillation, unspecified; I42.0 Dilated cardiomyopathy; E78.5 Hyperlipidemia, unspecified; K21.9 Gastro-esophageal reflux disease without esophagitis; G40.909 Epilepsy, unspecified, not intractable, without status epilepticus; E89.0 Postprocedural hypothyroidism; I48.0 Paroxysmal atrial fibrillation; Z79.899 Other long term (current) drug therapy; Z85.850 Personal history of malignant neoplasm of thyroid
CPT/HCPCS: 36415; 71045; 71250-TC; 76376; 80048; 80053; 80061; 80162; 83735; 83880; 84439; 84443; 84484; 85025; 85610-TC; 85730-TC; 87040; 93005; 93306; 94640; 96361; 96374; 96375; 99285; G0378; J1160; J1650; J1940; J1956; J3490; J7512; J7614